=== PATIENT | female | born 2000 | race African-American/Black ===

== ENCOUNTER 2023-10-27 08:38 | Emergency (ER) | payer MEDICAID ==
[~2023-10-27] VITALS: Ht 175.3 cm; Wt 104.0 kg
[2023-10-27 08:45] VITALS: BP 155/109; PULSE 82; RESP 20; TEMP 98.2; O2SAT 100
[2023-10-27] MEDS ORDERED: GUAI-450 MT (09:10)
[2023-10-27] MEDS ORDERED: BENZ1LOZ73 MT (09:10)
[2023-10-27] MEDS ORDERED: IBUP-2029 MT (09:10)
[2023-10-27] MEDS: DEXAMETHASONE 10 MG/ML VIAL PO ONE (09:15)
== END 2023-10-27 10:51 | disposition home or self-care (01) ==
LOC: ER 08:55
DX: J02.9 Acute pharyngitis, unspecified (principal)
CPT/HCPCS: 99282; J1100; Z7610 ×2